=== PATIENT | male | born 1985 | race Caucasian/White ===

== ENCOUNTER 2018-07-11 07:13 | Emergency (ER) | payer BC ==
[2018-07-11] MEDS ORDERED: Azithromycin 250 MG Tab PO ONE (07:47)
--- NOTE | 2018-07-11 07:52 | EDM.PDOC ---
ED HPI GENERAL MEDICAL PROBLEM - General Chief Complaint: Genitourinary Problem Stated Complaint: STD CHECK Time Seen by Provider: 07/11/18 07:32 Source of Information: Reports: Patient History Limitations: Reports: No Limitations - History of Present Illness INITIAL COMMENTS - FREE TEXT/NARRATIVE: The patient presents with penile discharge. He had unprotected sex recently. Yesterday he noticed some dysuria, yellowish orange discharge and some crusting. He has had gonorrhea before a couple years ago. He is concerned he may have it again. He is not concerned about other STDs. Onset: Gradual Duration: Day(s): (Yesterday) Severity: Moderate Improves with: Reports: None Worsens with: Reports: None Associated Symptoms: Reports: No Other Symptoms - Related Data Allergies Allergy/AdvReac Type Severity Reaction Status Date / Time No Known Allergies Allergy Verified 07/11/18 07:21 Home Meds: Home Meds . [No Known Home Meds] 07/11/18 [History] Past Medical History Genitourinary History: Reports: STD, Other (See Below) Other Genitourinary History: gonorrhea Social & Family History - Tobacco Use Smoking Status *Q: Never Smoker - Caffeine Use Caffeine Use: Reports: None - Recreational Drug Use Recreational Drug Use: No ED ROS GENERAL - Review of Systems Review Of Systems: See Below Constitutional: Reports: No Symptoms HEENT: Reports: No Symptoms Respiratory: Reports: No Symptoms Cardiovascular: Reports: No Symptoms Endocrine: Reports: No Symptoms GI/Abdominal: Reports: No Symptoms : Reports: Discharge, Dysuria Musculoskeletal: Reports: No Symptoms Skin: Reports: No Symptoms ED EXAM, RENAL/ - Physical Exam Exam: See Below Exam Limited By: No Limitations General Appearance: Alert, No Apparent Distress Ears: Normal External Exam Nose: Normal Inspection Head: Atraumatic, Normocephalic Neck: Normal Inspection Respiratory/Chest: No Respiratory Distress, Lungs Clear, Normal Breath Sounds Cardiovascular: Regular Rate, Rhythm, No Edema, No Murmur GI/Abdominal: Soft, Non-Tender, No Organomegaly, No Mass Extremities: Normal Inspection Neurological: Alert, Oriented, No Motor/Sensory Deficits Course - Vital Signs Last Recorded V/S: Last Vital Signs Temp 98.2 F 07/11/18 07:18 Pulse 78 07/11/18 07:18 Resp 18 07/11/18 07:18 BP 120/68 07/11/18 07:18 Pulse Ox 98 07/11/18 07:18 - Orders/Labs/Meds Orders: Active Orders 24 hr Category Date Time Status GC/CHLAMYDIA BY PCR [MOLEC] Stat Lab 07/11/18 07:24 Received [email or web address] [Rocephin] 250 mg Med 07/11/18 08:00 Active Lidocaine 1% [Xylocaine 1%] 0.5 ml IM Q24H Medication Orders Ceftriaxone Sodium 250 mg/ (Lidocaine HCl 0.5 ml) 0 mg IM Q24H DELORES Meds: Medications Generic Name Dose Route Start Last Admin Trade Name Freq PRN Reason Stop Dose Admin Ceftriaxone Sodium 250 mg/ 0 mg 07/11/18 08:00 Lidocaine HCl 0.5 ml IM Q24H DELORES Discontinued Medications Generic Name Dose Route Start Last Admin Trade Name Freq PRN Reason Stop Dose Admin Azithromycin 1,000 mg 07/11/18 07:47 Zithromax PO 07/11/18 07:48 ONETIME ONE - Re-Assessments/Exams Free Text/Narrative Re-Assessment/Exam: 07/11/18 07:51 I ordered a gonorrhea/chlamydia by PCR, rocephin 250mg IM and zithromax 1gram by mouth. 07/11/18 07:54 I will call him with the results. Departure - Departure Time of Disposition: 07:55 Disposition: Home, Self-Care 01 Condition: Good Clinical Impression: Gonorrhea - Discharge Information *PRESCRIPTION DRUG MONITORING PROGRAM REVIEWED*: Not Applicable *COPY OF PRESCRIPTION DRUG MONITORING REPORT IN PATIENT SHELBIE: Not Applicable Instructions: Sexually Transmitted Disease Referrals: PCP,None [Primary Care Provider] - Roman Sevilla, RAJESHC [Physician Sl[employer] Apprentice] - Forms: ED Department Discharge Additional Instructions: Have your partner either treated or tested. I will call you with the confirmatory test results. Please return if you are worse. It will take a day or 2 to notice a difference and then it should start to clear up. Avoid any sexual contact until you are symptom free. - My Orders Last 24 Hours: My Active Orders 07/11/18 07:24 GC/CHLAMYDIA BY PCR [MOLEC] Stat 07/11/18 08:00 cefTRIAXone [Rocephin] 250 mg Lidocaine 1% [Xylocaine 1%] 0.5 ml IM Q24H - Assessment/Plan Last 24 Hours: My Active Orders 07/11/18 07:24 GC/CHLAMYDIA BY PCR [MOLEC] Stat 07/11/18 08:00 [email or web address] [Rocephin] 250 mg Lidocaine 1% [Xylocaine 1%] 0.5 ml IM Q24H
[2018-07-11] MEDS ORDERED: cefTRIAXone 250 MG, Lidocaine 1% 0.5 ML IM SCH ×2 (08:00)
[2018-07-11 09:17] LABS: C. TRACHOMATIS BY PCR NOT DETECTED; N. GONORRHOEAE BY PCR DETECTED
== END 2018-07-11 08:00 | disposition home or self-care (01) ==
LOC: JD.ED 07:13
DX: A54.09 Other gonococcal infection of lower genitourinary tract (principal)
CPT/HCPCS: 87491; 87591; 96372; 99283; A9270; J0696